=== PATIENT | male | born 1970 | race African-American/Black ===

== ENCOUNTER → 2023-04-19 | Emergency (ER) | payer OTHER ==
[~2023-04-19] MED LIST: NA CHLORIDE 0.9% 2,000 ML ONE
[2023-04-19 09:27] LABS: Absolute Lymphocytes (CBC) 1.2 K/uL (0.7-4.9); Hematocrit 40.1 % (39.6-49.0); Lymphocytes % 20.7 % (15.3-44.8); MCV 85.7 fL (80-100); MPV 9.5 fL (7.6-11.3); Platelets 198 thou/uL (152-406); RBC Red Blood Cell Count 4.68 M/uL (4.33-5.43)
--- NOTE | 2023-04-19 09:40 | RAD REPORT ---
EXAM DESCRIPTION: CT - Head Brain Wo Cont - 04/19/2023 9:20 am CLINICAL HISTORY: WEAKNESS COMPARISON: No comparisons TECHNIQUE: Noncontrast head CT images were obtained without IV contrast. Multiplanar reformats were generated and reviewed. All CT scans are performed using dose optimization technique as appropriate and may include automated exposure control or mA/KV adjustment according to patient size. FINDINGS: No intracranial hemorrhage, mass, or edema. Midline structures are unremarkable. Normal ventricular caliber for age. Morales-white matter differentiation is preserved, without evidence of acute infarct. No abnormal extra- axial fluid collections. Mastoid air cells and visualized portions of the paranasal sinuses are clear. No acute bony findings. 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 IMPRESSION: No evidence of an acute intracranial process. Findings as above.
[2023-04-19 09:52] LABS: Albumin 3.8 g/dL (3.4-5.0); Bilirubin Total 0.5 mg/dL (0.2-1.0); Protein, Total 7.2 g/dL (6.4-8.2)
--- NOTE | 2023-04-19 10:57 | EDPHYS ---
Physician Documentation [facility] Name: Brady Carlton II Age: 52 yrs Sex: Male : 1970 Arrival Date: 04/19/2023 Time: 08:50 Bed 14 Private MD: Jacky Rodriguez E ED Physician Jong Newman HPI: 04/19 09:09 This 52 yrs old Black Male presents to ER via Ambulatory with complaints of Muscle ec2 Spasms. 09:09 Patient arrives today for evaluation of upper extremity spasms. Patient reports that ec2 yesterday he had noted some spasm in the left upper extremities. States no recent injuries or falls, no head or neck pain. States no previous history of similar symptoms. Patient reports history of diabetes as well as hypertension, is on diabetic medications as well as amlodipine. Patient reports that he had noted the symptoms, drink Powerade and subsequently noted improvement in symptoms. Patient reports no vomiting or diarrhea. Patient reports no recent illnesses. Of note patient reports that history of tachycardia, states that he is not on medications for this.. Historical: - Allergies: 09:06 No Known Allergies; iw - Home Meds: 09:06 amlodipine 10 mg tablet daily [Active]; metformin 1,000 mg Oral Tablet, Extended iw Release 24 hr daily [Active]; - PMHx: 09:06 Diabetes mellitus; Hypertensive disorder; iw - PSHx: 09:06 None; iw - Immunization history:: Adult Immunizations up to date. - Social history:: Smoking status: Patient reports the use of cigarette tobacco products, denies chronic smoking, but will smoke occasionally. ROS: 09:09 Constitutional: as per hpi ec2 Exam: 09:09 Constitutional: GEN: NAD Head: atraumatic Eyes: EOMI Ears: External ears are ec2 normal. CV: regular rate LUNGS: no respiratory distress ABD: non-distended SKIN: no evidence of rashes MSK: no evidence of trauma NEURO: Cranial nerves II through XII intact, strength intact in all 4 extremities, sensation intact throughout, normal [id number] Vital Signs: 09:04 BP 166 / 110; Pulse 112; Resp 16; Pulse Ox 98% on R/A; Weight 78.02 kg; Height 5 ft. 11 iw in. ; Pain 0/10; 09:42 BP 132 / 86; Pulse 95; Resp 16; Pulse Ox 99% on R/A; kd3 10:09 Temp 98.1(O); kd3 10:51 BP 147 / 94; Pulse 85; Resp 18; Pulse Ox 100% on R/A; kd3 09:04 Body Mass Index 23.99 (78.02 kg, 180.34 cm) iw 09:04 Pain Scale: Adult iw MDM: 09:02 Patient medically screened. ec2 09:09 Data reviewed: vital signs. ED course: Patient arrives today for evaluation of left ec2 upper extremity spasms. Examination remarkable for well-appearing neuro intact individual is otherwise in no acute distress. Will obtain lab work, CT imaging. Currently considering processes such as electrolyte disturbances, renal dysfunction, intracranial mass. Will suspicion for stroke, will suspicion for intracranial brain bleed.. 09:53 ED course: CT of head and CBC are reassuring.. ec2 09:59 ED course: Glucose at about 550, will give the patient crystalloid.. ec2 10:04 ED course: Metabolic profile with appropriate electrolytes, renal dysfunction noted ec2 with a creatinine 1.65 and a GFR 49. . 10:55 ED course: Patient with repeat blood sugar of 450. No evidence of recurrence of the ec2 patient's muscle spasms, I will discharge him home with information for neurology follow-up. I instructed him to follow-up with his primary care doctor and I will prescribe him Levemir as he has not been taking his home insulin medication. Reports a prescription of 40 units every morning.. 04/19 09:08 Order name: CBC with Diff; Complete Time: 09:53 ec2 04/19 09:08 Order name: CMP; Complete Time: 10:03 ec2 04/19 10:57 Order name: Glucose, Ancillary Testing; Complete Time: 10:59 EDMS 04/19 09:08 Order name: CT Head Brain wo Cont; Complete Time: 09:53 ec2 04/19 10:40 Order name: Glucose Level; Complete Time: 10:48 ec2 Administered Medications: 10:09 Drug: NS 0.9% IV 2000 ml IV at 1 bolus Per protocol; 1000 mL bolus Route: IV; Rate: 1 kd3 bolus; Site: right antecubital; 11:06 Follow up: IV Status: Completed infusion; IV Intake: 1000ml kd3 Disposition Summary: 04/19/23 10:56 Discharge Ordered Notes: Location: Home ec2 Condition: Stable ec2 Diagnosis - Muscle spasm ec2 Followup: ec2 - With: Paramjit Peralta MD - When: - Reason: Recheck today's complaints Discharge Instructions: - Discharge Summary Sheet ec2 - Muscle Cramps and Spasms ec2 Forms: - Work release form kd3 - Medication Reconciliation Form ec2 - Thank You Letter ec2 - Antibiotic Education ec2 - Prescription Opioid Use ec2 - Patient Portal Instructions ec2 - Leadership Thank You Letter ec2 Prescriptions: - Levemir FlexPen 100 unit/mL (3 mL) Subcutaneous Insulin Pen - inject 40 unit SUBCUTANEOUS route daily; 600 unit; Refills: 0, Product ec2 Selection Permitted Signatures: Dispatcher [employer] Carrie Chaves RN RN iw Doucette, Kyli, RN RN kd3 Jong Newman MD MD ec2 Corrections: (The following items were deleted from the chart) 09:13 09:09 Patient arrives today for evaluation of upper extremity spasms. Patient reports ec2 that yesterday he had noted some spasm in the left upper extremities. States no recent injuries or falls, no head or neck pain. States no previous history of similar symptoms. Patient reports history of diabetes as well as hypertension, is on diabetic medications as well as amlodipine. Patient reports that he had noted the symptoms, drink Powerade and subsequently noted improvement in symptoms. Patient reports no vomiting or diarrhea. Patient reports no recent illnesses.. ec2
--- NOTE | 2023-04-19 10:57 | ER ---
Nurse's Notes [facility] Name: Brady Carlton II Age: 52 yrs Sex: Male : 1970 Arrival Date: 04/19/2023 Time: 08:50 Bed 14 Private MD: Jacky Rodriguez E Diagnosis: Muscle spasm Presentation: 04/19 09:04 Chief complaint: Patient states: my left arm has these spasms, twitches , off and on iw since Tuesday morning , it lasts about 10 seconds and then goes away. Coronavirus screen: At this time, the client does not indicate any symptoms associated with coronavirus-19. Ebola Screen: Patient negative for fever greater than or equal to 101.5 degrees Fahrenheit, and additional compatible Ebola Virus Disease symptoms Patient denies exposure to infectious person. Patient denies travel to an Ebola-affected area in the 21 days before illness onset. No symptoms or risks identified at this time. Initial Sepsis Screen: Does the patient meet any 2 criteria? No. Patient's initial sepsis screen is negative. Does the patient have a suspected source of infection? No. Patient's initial sepsis screen is negative. Risk Assessment: Do you want to hurt yourself or someone else? Patient reports no desire to harm self or others. Onset of symptoms was April 19, 2023. 09:04 Method Of Arrival: Ambulatory iw 09:04 Acuity: SEVERO 3 iw Historical: - Allergies: 09:06 No Known Allergies; iw - Home Meds: 09:06 amlodipine 10 mg tablet daily [Active]; metformin 1,000 mg Oral Tablet, Extended iw Release 24 hr daily [Active]; - PMHx: 09:06 Diabetes mellitus; Hypertensive disorder; iw - PSHx: 09:06 None; iw - Immunization history:: Adult Immunizations up to date. - Social history:: Smoking status: Patient reports the use of cigarette tobacco products, denies chronic smoking, but will smoke occasionally. Screenin:05 [facility] ED Fall Risk Assessment (Adult) History of falling in the last 3 months, kd3 including since admission No falls in past 3 months (0 pts) Confusion or Disorientation No (0 pts) Intoxicated or Sedated No (0 pts) Impaired Gait No (0 pts) Mobility Assist Device Used No (0 pt) Altered Elimination No (0 pt) Score/Fall Risk Level 0 - 2 = Low Risk Oriented to surroundings. Abuse screen: Denies threats or abuse. Denies injuries from another. Nutritional screening: No deficits noted. Tuberculosis screening: No symptoms or risk factors identified. Assessment: 09:04 General: Appears in no apparent distress. Behavior is calm, cooperative. Pain: Denies kd3 pain. Neuro: Level of Consciousness is awake, alert, obeys commands, Oriented to person, place, time, situation. Cardiovascular: Patient's skin is warm and dry. Respiratory: Airway is patent Trachea midline Respiratory effort is even, unlabored, Respiratory pattern is regular, symmetrical. Vital Signs: 09:04 BP 166 / 110; Pulse 112; Resp 16; Pulse Ox 98% on R/A; Weight 78.02 kg; Height 5 ft. 11 iw in. ; Pain 0/10; 09:42 BP 132 / 86; Pulse 95; Resp 16; Pulse Ox 99% on R/A; kd3 10:09 Temp 98.1(O); kd3 10:51 BP 147 / 94; Pulse 85; Resp 18; Pulse Ox 100% on R/A; kd3 09:04 Body Mass Index 23.99 (78.02 kg, 180.34 cm) iw 09:04 Pain Scale: Adult iw ED Course: 08:52 Patient arrived in ED. rg4 08:53 Jacky Rodriguez MD is Private Physician. rg4 09:02 Jong Newman MD is Attending Physician. ec2 09:05 Patient has correct armband on for positive identification. Bed in low position. Call kd3 light in reach. 09:06 Triage completed. iw 09:08 Nataly Dawn, RN is Primary Nurse. kd3 09:18 CMP Sent. kd3 09:18 CBC with Diff Sent. kd3 09:21 CT Head Brain wo Cont In Process Unspecified. EDMS 10:56 Paramjit Peralta MD is Referral Physician. ec2 11:05 Provided Education on: . kd3 11:05 Arm band placed on. kd3 11:05 No provider procedures requiring assistance completed. IV discontinued, intact, kd3 bleeding controlled, No redness/swelling at site. Pressure dressing applied. Administered Medications: 10:09 Drug: NS 0.9% IV 2000 ml IV at 1 bolus Per protocol; 1000 mL bolus Route: IV; Rate: 1 kd3 bolus; Site: right antecubital; 11:06 Follow up: IV Status: Completed infusion; IV Intake: 1000ml kd3 Medication: 11:05 VIS not applicable for this client. kd3 Intake: 11:06 IV: 1000ml; Total: 1000ml. kd3 Outcome: 10:56 Discharge ordered by . ec2 11:05 Discharged to home ambulatory, kd3 11:05 Condition: stable 11:05 Discharge instructions given to patient, family, Instructed on discharge instructions, follow up and referral plans. Demonstrated understanding of instructions, follow-up care, medications, Prescriptions given X 1, 11:15 Patient left the ED. kd3 Signatures: Dispatcher [employer] Carrie Chaves RN RN iw Garcia, Rubi 4 Nataly Dawn RN RN kd3 Jong Newman MD MD ec2
[2023-04-19 11:27] VITALS: BP 147/94; TEMP 98.1; O2SAT 100
== END ==
LOC: ER 08:50
DX: M62.838 Other muscle spasm (principal); E11.9 Type 2 diabetes mellitus without complications; I10 Essential (primary) hypertension; F17.210 Nicotine dependence, cigarettes, uncomplicated
CPT/HCPCS: 85025; 36415; 82947; 80053; 70450; 96360; 99284; J7030